=== PATIENT | male | born 1995 | race Caucasian/White ===

== ENCOUNTER 2022-08-27 08:12 | Emergency (ER) | payer SELFPAY ==
[2022-08-27 08:48] LABS: Absolute Lymphocytes (CBC) 2.6 K/uL (0.7-4.9); Hematocrit 42.9 % (39.6-49.0); Lymphocytes % 42.2 % (15.3-44.8); MCV 88.5 fL (80-100); MPV 7.5 fL (7.6-11.3); RBC Red Blood Cell Count 4.85 M/uL (4.33-5.43)
[2022-08-27 09:02] LABS: Potassium 3.6 mmol/L (3.5-5.1)
--- NOTE | 2022-08-27 09:42 | ER ---
Nurse's Notes [facility] Name: Joseph Simms Age: 27 yrs Sex: Male : 1995 Arrival Date: 08/27/2022 Time: 08:15 Bed 16 Private MD: None, None Diagnosis: Infectious mononucleosis, unspecified without complication Presentation: 08/27 08:22 Chief complaint: Spouse and/or significant other states: hoarseness x 1 month and sore ss throat x 2 weeks. Denies fever. Coronavirus screen: Client denies travel out of the [place] in the last 14 days. Ebola Screen: Patient denies exposure to infectious person. Patient denies travel to an Ebola-affected area in the 21 days before illness onset. Initial Sepsis Screen: Does the patient meet any 2 criteria? No. Patient's initial sepsis screen is negative. Does the patient have a suspected source of infection? No. Patient's initial sepsis screen is negative. Risk Assessment: Do you want to hurt yourself or someone else? Patient reports no desire to harm self or others. Onset of symptoms was June 2022. 08:22 Method Of Arrival: Ambulatory ss 08:22 Acuity: ANTONIO 3 ss Triage Assessment: 10:00 General: Behavior is calm, cooperative, appropriate for age. ko1 Historical: - Allergies: 08:25 No Known Allergies; ss - Home Meds: 08:25 metformin 500 mg Oral tab 1 tab 2 times per day [Active]; enal [Active]; ss - PMHx: 08:25 Diabetes mellitus; ss - PSHx: 08:25 None; ss - Immunization history:: Client reports having NOT received the Covid vaccine. - Social history:: Smoking status: Patient denies any tobacco usage or history of. Screenin:23 [facility] ED Fall Risk Assessment (Adult) History of falling in the last 3 months, ko1 including since admission No falls in past 3 months (0 pts) Confusion or Disorientation No (0 pts) Intoxicated or Sedated No (0 pts) Impaired Gait No (0 pts) Mobility Assist Device Used No (0 pt) Altered Elimination No (0 pt) Score/Fall Risk Level 0 - 2 = Low Risk Oriented to surroundings, Maintained a safe environment, Educated pt \T\ family on fall prevention, incl call for assistance when getting out of bed, Assessed \T\ reinforced patient's understanding of fall precautions, Provided non-skid footwear, Hourly rounding (assess needs \T\ fall precautionary measures) done, Used ambulatory aids as needed (educated on \T\ assisted with), Used gait belt as appropriate. Abuse screen: Denies threats or abuse. Denies injuries from another. Nutritional screening: No deficits noted. Tuberculosis screening: No symptoms or risk factors identified. Assessment: 09:23 General: Appears in no apparent distress. uncomfortable. Pain: Complains of pain in ko1 throat. Neuro: No deficits noted. Cardiovascular: No deficits noted. Respiratory: Airway is patent Respiratory effort is even, unlabored, Breath sounds are clear bilaterally. GI: No deficits noted. : No deficits noted. EENT: Throat is reddened. Derm: No deficits noted. Musculoskeletal: No deficits noted. Vital Signs: 08:22 BP 137 / 70; Pulse 83; Resp 16; Pulse Ox 100% on R/A; Weight 102.97 kg; Pain 8/10; ss 09:23 BP 111 / 71; Pulse 80; Resp 16; Temp 98.3; Pulse Ox 100% ; ko1 09:58 BP 111 / 72; Pulse 74; Resp 18; Pulse Ox 99% ; ko1 ED Course: 08:15 Patient arrived in ED. as 08:15 None, None is Private Physician. as 08:16 [facility]ice Lopez [facility]C [facility] kb 08:16 Vasiliy Delgado DO is Attending Physician. kb 08:25 Triage completed. ss 08:25 Arm band placed on right wrist. ss 08:50 Linda Grijalva, RN is Primary Nurse. ko1 08:50 [place] Screen Profile Sent. ko1 08:50 Basic Metabolic Panel Sent. ko1 08:50 CBC with Diff Sent. ko1 08:50 Strep Sent. ko1 08:50 Initial lab(s) drawn, by ED staff, sent to lab. EKG done, by ED staff, reviewed by ana SHAH. 09:23 Patient has correct armband on for positive identification. Bed in low position. Call ko1 light in reach. Pulse ox on. NIBP on. 09:58 No provider procedures requiring assistance completed. IV discontinued, intact, ko1 bleeding controlled, No redness/swelling at site. Pressure dressing applied. Administered Medications: No medications were administered Medication: 09:58 VIS not applicable for this client. ko1 Outcome: 09:42 Discharge ordered by . theresa 09:58 Discharged to home ambulatory. ko1 09:58 Condition: stable 09:58 Discharge instructions given to patient, family, Instructed on discharge instructions, follow up and referral plans. Demonstrated understanding of instructions, follow-up care. 10:15 Patient left the ED. ko1 Signatures: Shanice Lopez, YARN MERCERIZER OPERATOR-C KIMBERLEY-Katlyn Manzo Eric em1 Lola Del Rosario, RN RN ss Linda Grijalva, HAYLEE RN ko1
--- NOTE | 2022-08-27 09:43 | EDPHYS ---
Physician Documentation [facility] Name: Joseph Simms Age: 27 yrs Sex: Male : 1995 Arrival Date: 08/27/2022 Time: 08:15 Bed 16 Private MD: None, None ED Physician Vasiliy Delgado HPI: 08/27 08:31 This 27 yrs old Male presents to ER via Ambulatory with complaints of Sore Throat, kb Swollen Glands. 08:31 The patient presents with sore throat. The patient describes throat pain as constant. kb Onset: The symptoms/episode began/occurred 1 month(s) ago. Severity of symptoms: At their worst the symptoms were mild, in the emergency department the symptoms are unchanged. Modifying factors: The symptoms are alleviated by nothing, the symptoms are aggravated by swallowing, Patient's oral intake status: good. Associated signs and symptoms: Pertinent positives: Sore throat. The patient has not experienced similar symptoms in the past. The patient has not recently seen a physician. 08:41 Patient is a 27-year-old male with history of diabetes who presents to the ER for kb hoarseness for over a month with throat pain that started this week. Denies any fever. Historical: - Allergies: 08:25 No Known Allergies; ss - Home Meds: 08:25 metformin 500 mg Oral tab 1 tab 2 times per day [Active]; enal [Active]; ss - PMHx: 08:25 Diabetes mellitus; ss - PSHx: 08:25 None; ss - Immunization history:: Client reports having NOT received the Covid vaccine. - Social history:: Smoking status: Patient denies any tobacco usage or history of. ROS: 08:31 Constitutional: Negative for fever, chills, and weight loss. kb 08:31 ENT: Positive for hoarseness, sore throat. 08:31 All other systems are negative. Exam: 08:31 Constitutional: This is a well developed, well nourished patient who is awake, alert, kb and in no acute distress. Head/Face: Normocephalic, atraumatic. Cardiovascular: Regular rate and rhythm with a normal S1 and S2. No gallops, murmurs, or rubs. No pulse deficits. Respiratory: Respirations even and unlabored. No increased work of breathing. Talking in full sentences Abdomen/GI: Soft, non-tender. No distention Skin: Warm, dry with normal turgor. Normal color. MS/ Extremity: Pulses equal, no cyanosis. Neurovascular intact. Full, normal range of motion. Neuro: Awake and alert, GCS 15, oriented to person, place, time, and situation. Moves all extremities. Normal gait. Psych: Awake, alert, with orientation to person, place and time. Behavior, mood, and affect are within normal limits. 08:31 ENT: Posterior pharynx: Airway: normal, no evidence of obstruction, Uvula: normal, midline, swelling, is not appreciated, erythema, that is moderate. Vital Signs: 08:22 BP 137 / 70; Pulse 83; Resp 16; Pulse Ox 100% on R/A; Weight 102.97 kg; Pain 8/10; ss 09:23 BP 111 / 71; Pulse 80; Resp 16; Temp 98.3; Pulse Ox 100% ; ko1 09:58 BP 111 / 72; Pulse 74; Resp 18; Pulse Ox 99% ; ko1 MDM: 08:24 Patient medically screened. 08:30 Data reviewed: vital signs, nurses notes. 08:53 Historians other than the Patient: Spouse/Significant Other: significant other. ED course: Patient is a 27-year-old male who presents for hoarse voice and throat pain that started over a month ago and has gotten worse. Patient has a history of diabetes. Exam findings positive for erythema to throat. Differential diagnoses include strep, mono, laryngitis, pharyngitis. Will obtain strep test and serum labs.. 09:41 I considered the following discharge prescriptions or medication management in the emergency department I discussed and recommended Over The Counter medications, Antivirals: At this time, antivirals are not recommended. Counseling: I had a detailed discussion with the patient and/or guardian regarding: the historical points, exam findings, and any diagnostic results supporting the discharge/admit diagnosis, lab results, the need for outpatient follow up, a family practitioner, to return to the emergency department if symptoms worsen or persist or if there are any questions or concerns that arise at home. ED course: Discussed diagnostic findings with patient and significant other. Educated on mono and symptomatic treatment but that antibiotics are not indicated for this virus. Verbal understanding received from spouse who translated everything to patient. All questions answered.. 08/27 08:24 Order name: Strep; Complete Time: 09:23 kb 08/27 08:24 Order name: CBC with Diff; Complete Time: 08:56 kb 08/27 08:24 Order name: Basic Metabolic Panel; Complete Time: 09:08 kb 08/27 08:24 Order name: [place] Screen Profile; Complete Time: 09:23 kb 08/27 08:24 Order name: IV Start; Complete Time: 08:50 kb 08/27 09:16 Order name: Throat Culture EDMS Administered Medications: No medications were administered Disposition: 09:47 Co-signature as Attending Physician, Vasiliy Delgado DO I reviewed the patient's care ms3 provided by Advanced Practice Provider \T\ agree w/ the diagnosis \T\ care plan. I personally saw the pt \T\ performed a substantive portion of the visit, incldng all aspects of the (History/Exam/Medical Decision Making). PA/LICENSING REPRESENTATIVE's history reviewed, patient interviewed, and examined. HPI: 27-year-old male presents for sore throat and voice hoarse x1 month. My personal exam of patient reveals: On exam patient's oropharynx is without exudates, mild erythema, no peritonsillar or retropharyngeal abscesses. Patient's heart rate and rhythm are regular without murmurs rubs or gallops, lungs are clear to auscultation bilaterally. Disposition Summary: 08/27/22 09:42 Discharge Ordered Location: Home kb Condition: Stable kb Diagnosis - Infectious mononucleosis, unspecified without complication kb Followup: kb - With: Emergency Department - When: As needed - Reason: Worsening of condition Followup: kb - With: Private Physician - When: 2 - 3 days - Reason: Recheck today's complaints, Continuance of care, Re-evaluation by your physician Discharge Instructions: - Discharge Summary Sheet kb - Infectious Mononucleosis kb Forms: - Medication Reconciliation Form kb - Thank You Letter kb - Antibiotic Education kb - Work release form kb - Prescription Opioid Use kb Signatures: Dispatcher [employer] Shanice Arevalo, Lola Spencer RN RN ss Sims, Marcus, DO DO ms3
[2022-08-27 10:20] VITALS: TEMP 98.3
[2022-08-27 10:22] VITALS: BP 111/72; O2SAT 99
== END 2022-08-27 10:15 | disposition home or self-care (01) ==
LOC: ER 08:12
DX: B27.90 Infectious mononucleosis, unspecified without complication (principal); E11.9 Type 2 diabetes mellitus without complications
CPT/HCPCS: 36415; 80048; 85025; 86308; 87070; 87081; 99283